=== PATIENT | male | born 1945 | race Two or more races ===

== ENCOUNTER 2025-07-13 14:33 | Outpatient (REF) | payer SELFPAY ==
[2025-07-13 15:12] LABS: Glucose Urine UA 500 mg/dL (NEGATIVE)
[2025-07-13 15:34] LABS: Cast Seen? NONE SEEN #/LPF (NONE SEEN); Crystals Seen? None Seen #/HPF (None Seen)
== END 2025-07-13 14:34 | disposition home or self-care (01) ==
LOC: LAB 14:33
PROVIDERS: Visit Provider Urology
DX: R31.29 Other microscopic hematuria (principal)
CPT/HCPCS: 81001